=== PATIENT | male | born 1945 | race Caucasian/White ===

== ENCOUNTER 2023-07-06 12:00 | Outpatient (CLI) | payer MEDICARE, OTHER | END 2023-07-06 12:01 | disposition home or self-care (01) | LOC: RAD 12:00 | PROVIDERS: ATTEND Internal Medicine | DX: C90.00 Multiple myeloma not having achieved remission (principal); D47.2 Monoclonal gammopathy; G95.89 Other specified diseases of spinal cord | CPT/HCPCS: 77075 ==